=== PATIENT | male | born 1990 | race Caucasian/White ===

== ENCOUNTER 2018-03-04 06:35 | Emergency (ER) | payer OTHER ==
[~2018-03-04] VITALS: Ht 170.2 cm; Wt 86.2 kg
[~2018-03-04 06:35] MED LIST: Amoxicillin500 MG PO; BENADRYL25 MG PO; BENZ100A PO; Biaxin500 MG PO; CEFA250SU PO; CEPH500 PO; CETI10 PO; CYCL10 PO; Cleocin HCl300 MG PO; DIPH50 PO; FAMO20 PO; HYDACE5 PO; IBUP800 PO; KETO10 PO; Keflex500 MG PO; Mobic15 MG PO; NAPR500 PO; NAPR550 PO; Naprosyn500 MG PO; Norco 5-325 Ta1 EACH PO; OMEP20ER PO; OXYACE5T PO; PENVK500 PO; PRED10 PO; PROC10 PO; PROM25 PO; Percocet 5-3251 EACH PO; Prednisone20 MG PO; Prilosec20 MG PO; RXHYDACE PO; RXOXYACE PO; SULTRIDS PO
[2018-03-04 07:21] LABS: BASOPHILS ABSOLUTE AUTO 0.04 K/mm3 (0.00-0.23); BASOPHILS PERCENT AUTO 1 % (0-2); EOSINOPHILS PERCENT AUTO 3 % (0-6); Hematocrit 44.6 % (37.0-53.0); IMMATURE GRAN ABSOLUTE AUTO 0.01 K/mm3 (0.00-0.10); IMMATURE GRAN PERCENT AUTO 0 % (0-1); LYMPHOCYTES ABSOLUTE AUTO 2.67 K/mm3 (0.84-5.20); LYMPHOCYTES PERCENT AUTO 42 % (21-46); MONOCYTES PERCENT AUTO 6 % (4-13); Mean Corpuscular HGB 29.5 pg (26.0-34.0); Mean Corpuscular HGB Conc 33.6 g/dL (31.5-36.5); Mean Corpuscular Volume 88 fL (80-100); Mean Platelet Volume 10.8 fL (9.1-12.4); NEUTROPHILS ABSOLUTE AUTO 2.99 K/mm3 (1.96-9.15); NEUTROPHILS PERCENT AUTO 47 % (41-73); Platelet Count 268 K/mm3 (150-400); RDW Standard Deviation 38.9 fL (35.1-46.3); Red Blood Cell Count 5.08 M/mm3 (4.30-5.90); White Blood Cell Count 6.31 K/mm3 (4.00-11.30)
[2018-03-04 07:35] LABS: Anion Gap 6 mmol/L (6-16); Blood Urea Nitrogen 9 mg/dL (8-24); Bun/Creatinine Ratio 8.7 (12.0-20.0); CO2, Blood 28 mmol/L (21-32); Calcium, Blood 8.2 mg/dL (8.5-10.1); Chloride, Blood 108 mmol/L (98-108); Creatinine, Blood 1.03 mg/dL (0.60-1.20); Glomerular Filtration Rate >60 (60-); Glucose, Blood 101 mg/dL (70-99); Potassium, Blood 3.7 mmol/L (3.5-5.5); Sodium, Blood 142 mmol/L (136-145)
[2018-03-04] MEDS ORDERED: Flomax0.4 MG PO (08:42)
[2018-03-04] MEDS ORDERED: Norco 7.5-3251 EACH PO (08:42)
== END 2018-03-04 09:05 | disposition home or self-care (01) ==
LOC: ER 06:35
PROVIDERS: Emergency Medicine
DX: N13.2 Hydronephrosis with renal and ureteral calculous obstruction (principal); I10 Essential (primary) hypertension; F17.200 Nicotine dependence, unspecified, uncomplicated
CPT/HCPCS: 74176; 80048; 81000; 85025; 96361; 96374; 96375; 99284; J1885; J2405; J7030

== ENCOUNTER 2018-06-15 14:30 | Emergency (ER) | payer SELFPAY ==
[~2018-06-15] VITALS: Ht 170.2 cm; Wt 83.9 kg
[~2018-06-15 14:30] MED LIST changes: +Flomax0.4 MG PO; +Norco 7.5-3251 EACH PO
== END 2018-06-15 15:26 | disposition left against medical advice (07) ==
LOC: ER 14:30
DX: Z53.21 Procedure and treatment not carried out due to patient leaving prior to being seen by health care provider (principal)

== ENCOUNTER 2018-07-09 13:40 | Emergency (ER) | payer MEDICAID ==
[~2018-07-09] VITALS: Ht 167.6 cm; Wt 86.2 kg
== END 2018-07-09 15:53 | disposition home or self-care (01) ==
LOC: ER 13:40
DX: K64.4 Residual hemorrhoidal skin tags (principal); I10 Essential (primary) hypertension; F17.200 Nicotine dependence, unspecified, uncomplicated; Z88.0 Allergy status to penicillin
CPT/HCPCS: 99282

== ENCOUNTER 2019-06-11 22:51 | Emergency (ER) | payer OTHER ==
[~2019-06-11] VITALS: Ht 167.6 cm; Wt 90.7 kg
[2019-06-12 00:52] LABS: BASOPHILS ABSOLUTE AUTO 0.03 K/mm3 (0.00-0.23); BASOPHILS PERCENT AUTO 0 % (0-2); EOSINOPHILS ABSOLUTE AUTO 0.25 K/mm3 (0.00-0.68); EOSINOPHILS PERCENT AUTO 2 % (0-6); Hematocrit 46.9 % (37.0-53.0); Hemoglobin 15.7 g/dL (13.5-17.5); IMMATURE GRAN ABSOLUTE AUTO 0.04 K/mm3 (0.00-0.10); IMMATURE GRAN PERCENT AUTO 0 % (0-1); LYMPHOCYTES ABSOLUTE AUTO 2.27 K/mm3 (0.84-5.20); LYMPHOCYTES PERCENT AUTO 15 % (21-46); MONOCYTES ABSOLUTE AUTO 0.73 K/mm3 (0.16-1.47); MONOCYTES PERCENT AUTO 5 % (4-13); Mean Corpuscular HGB 28.8 pg (26.0-34.0); Mean Corpuscular HGB Conc 33.5 g/dL (31.5-36.5); Mean Corpuscular Volume 86 fL (80-100); Mean Platelet Volume 11.2 fL (9.1-12.4); NEUTROPHILS ABSOLUTE AUTO 11.46 K/mm3 (1.96-9.15); NEUTROPHILS PERCENT AUTO 78 % (41-73); Platelet Count 295 K/mm3 (150-400); RDW Standard Deviation 37.2 fL (35.1-46.3); Red Blood Cell Count 5.45 M/mm3 (4.30-5.90); White Blood Cell Count 14.78 K/mm3 (4.00-11.30)
[2019-06-12 01:10] LABS: Alanine Aminotransfer (ALT/SGP 21 U/L (12-78); Albumin, Blood 3.4 g/dL (3.4-5.0); Alk Phos 96 U/L (50-136); Anion Gap 7 mmol/L (6-16); Aspartate Aminotrans (AST/SGOT 11 U/L (12-37); Bilirubin, Total 0.6 mg/dL (0.1-1.0); Blood Urea Nitrogen 13 mg/dL (8-24); Bun/Creatinine Ratio 16.6 (12.0-20.0); CO2, Blood 29 mmol/L (21-32); Calcium, Blood 8.5 mg/dL (8.5-10.1); Chloride, Blood 103 mmol/L (98-108); Creatinine, Blood 0.79 mg/dL (0.60-1.20); Globulin, Blood 3.4 g/dL (2.2-4.0); Glomerular Filtration Rate >60 (60-); Glucose, Blood 107 mg/dL (70-99); Potassium, Blood 3.6 mmol/L (3.5-5.5); Sodium, Blood 139 mmol/L (136-145); Total Protein, Blood 6.8 g/dL (6.4-8.2)
== END 2019-06-12 02:40 | disposition home or self-care (01) ==
LOC: ER 22:51
PROVIDERS: Emergency Medicine
DX: K21.9 Gastro-esophageal reflux disease without esophagitis (principal); F15.10 Other stimulant abuse, uncomplicated; Z88.0 Allergy status to penicillin; I10 Essential (primary) hypertension; F17.200 Nicotine dependence, unspecified, uncomplicated; Z87.442 Personal history of urinary calculi
CPT/HCPCS: 36415; 80053; 83690; 85025; 99283

== ENCOUNTER 2020-03-22 11:13 | Emergency (ER) | payer OTHER ==
[~2020-03-22] VITALS: Ht 170.2 cm; Wt 83.9 kg
[2020-03-22] MEDS ORDERED: CYCL10 PO (11:56)
[2020-03-22] MEDS ORDERED: IBUP800 PO (11:56)
[2020-03-22] MEDS ORDERED: BACTRIM DS TAB1 EACH PO (11:56)
== END 2020-03-22 12:15 | disposition home or self-care (01) ==
LOC: ER 11:13
DX: M62.830 Muscle spasm of back (principal); L03.113 Cellulitis of right upper limb; I10 Essential (primary) hypertension; F17.200 Nicotine dependence, unspecified, uncomplicated; Z88.0 Allergy status to penicillin
CPT/HCPCS: 20552; 99283-25

== ENCOUNTER 2021-05-24 12:35 | Emergency (ER) | payer OTHER ==
[~2021-05-24] VITALS: Ht 167.6 cm; Wt 86.2 kg
[~2021-05-24 12:35] MED LIST changes: +BACTRIM DS TAB1 EACH PO; +ERYT1OIN RIGHTEYE
== END 2021-05-24 15:06 | disposition home or self-care (01) ==
LOC: ER 12:35
DX: M54.12 Radiculopathy, cervical region (principal); I10 Essential (primary) hypertension; Z88.0 Allergy status to penicillin; Z87.891 Personal history of nicotine dependence
CPT/HCPCS: 73030; 99283-25

== ENCOUNTER 2021-07-12 20:45 | Emergency (ER) | payer OTHER ==
[~2021-07-12] VITALS: Ht 167.6 cm; Wt 93.0 kg
== END 2021-07-12 22:04 | disposition home or self-care (01) ==
LOC: ER 20:45
DX: S60.455A Superficial foreign body of left ring finger, initial encounter (principal); I10 Essential (primary) hypertension; Z88.0 Allergy status to penicillin; Z23 Encounter for immunization; Z87.891 Personal history of nicotine dependence; W45.8XXA Other foreign body or object entering through skin, initial encounter
CPT/HCPCS: 73140; 90471; 90714; 99283-25

== ENCOUNTER 2021-12-11 13:41 | Inpatient (IN) | payer OTHER ==
[~2021-12-11] VITALS: Ht 167.6 cm; Wt 82.3 kg
[2021-12-11 14:17] LABS: BASOPHILS ABSOLUTE AUTO 0.04 K/mm3 (0.00-0.23); BASOPHILS PERCENT AUTO 0 % (0-2); EOSINOPHILS ABSOLUTE AUTO 0.16 K/mm3 (0.00-0.68); EOSINOPHILS PERCENT AUTO 1 % (0-6); Hemoglobin 16.5 g/dL (13.5-17.5); IMMATURE GRAN ABSOLUTE AUTO 0.08 K/mm3 (0.00-0.10); IMMATURE GRAN PERCENT AUTO 1 % (0-1); LYMPHOCYTES ABSOLUTE AUTO 1.54 K/mm3 (0.84-5.20); LYMPHOCYTES PERCENT AUTO 9 % (21-46); MONOCYTES ABSOLUTE AUTO 0.61 K/mm3 (0.16-1.47); MONOCYTES PERCENT AUTO 4 % (4-13); Mean Corpuscular HGB 29.4 pg (26.0-34.0); Mean Corpuscular HGB Conc 33.7 g/dL (31.5-36.5); Mean Corpuscular Volume 87 fL (80-100); Mean Platelet Volume 11.7 fL (9.1-12.4); NEUTROPHILS ABSOLUTE AUTO 14.19 K/mm3 (1.96-9.15); NEUTROPHILS PERCENT AUTO 85 % (41-73); Platelet Count 279 K/mm3 (150-400); RDW Coefficient Variation 12.2 % (11.7-14.2); RDW Standard Deviation 38.6 fL (35.1-46.3); Red Blood Cell Count 5.61 M/mm3 (4.30-5.90); White Blood Cell Count 16.62 K/mm3 (4.00-11.30)
[2021-12-11 14:35] LABS: Alanine Aminotransfer (ALT/SGP 43 U/L (12-78); Albumin, Blood 3.8 g/dL (3.4-5.0); Albumin/Globulin Ratio 1.3 (0.8-1.8); Alk Phos 77 U/L (50-136); Anion Gap 8 mmol/L (6-16); Aspartate Aminotrans (AST/SGOT 24 U/L (12-37); Bilirubin, Total 1.6 mg/dL (0.1-1.0); Blood Urea Nitrogen 17 mg/dL (8-24); Bun/Creatinine Ratio 16.5 (12.0-20.0); CO2, Blood 24 mmol/L (21-32); Chloride, Blood 107 mmol/L (98-108); Creatinine, Blood 1.03 mg/dL (0.60-1.20); Glomerular Filtration Rate >60 (60-); Glucose, Blood 99 mg/dL (70-99); Potassium, Blood 4.2 mmol/L (3.5-5.5); Sodium, Blood 139 mmol/L (136-145); Total Protein, Blood 6.8 g/dL (6.4-8.2)
[2021-12-11 15:07] LABS: Influenza A, PCR NEGATIVE (NEGATIVE); Influenza B, PCR NEGATIVE (NEGATIVE); Resp Syncytial Virus, PCR NEGATIVE (NEGATIVE); SARS-Cov-2 (COVID-19) PCR, MMC NEGATIVE (NEGATIVE)
--- NOTE | 2021-12-11 15:39 | NUR ---
Echocardiogram completed.
--- NOTE | 2021-12-11 18:30 | NUR ---
SHIFT SUMMARY; PATIENT ADMITTED LATE IN AFTERNOON. HE IS AO X 4 ON ARRIVAL. EXPRESSES MUCH ANXIETY THAT HIS HEART IS NOT WORKING CORRECTLY. HIS GIRLFRIEND AT BEDSIDE CONFIRMS THAT PATIENT LAST USED METH THIS AM PRIOR TO COMING TO THE HOSPITAL. DR. RANDOLPH ADMITTED THIS PATIENT TO OBS ON THE MED FLOOR. TELE MONITOR IN PLACE. PATIENT HAS ELEVATED BNP OV >1000 AND RECEIVED LASIX 40MG IV PRIOR TO COMING TO THE MED FLOOR. WILL REMAIN AVAILABLE FOR THIS PATIENT FOR ANY WANTS OR NEEDS PRIOR TO SHIFT CHANGE AND SHIFT REPORT TO NOC SHIFT RN.
[2021-12-11 18:35] LABS: CPK Creatine Kinase 69 U/L (39-308)
[2021-12-12 02:26] LABS: BASOPHILS ABSOLUTE AUTO 0.04 K/mm3 (0.00-0.23); BASOPHILS PERCENT AUTO 0 % (0-2); EOSINOPHILS ABSOLUTE AUTO 0.32 K/mm3 (0.00-0.68); EOSINOPHILS PERCENT AUTO 4 % (0-6); Hematocrit 47.6 % (37.0-53.0); Hemoglobin 16.5 g/dL (13.5-17.5); IMMATURE GRAN ABSOLUTE AUTO 0.02 K/mm3 (0.00-0.10); IMMATURE GRAN PERCENT AUTO 0 % (0-1); LYMPHOCYTES ABSOLUTE AUTO 2.93 K/mm3 (0.84-5.20); LYMPHOCYTES PERCENT AUTO 33 % (21-46); MONOCYTES ABSOLUTE AUTO 0.45 K/mm3 (0.16-1.47); MONOCYTES PERCENT AUTO 5 % (4-13); Mean Corpuscular HGB 29.8 pg (26.0-34.0); Mean Corpuscular HGB Conc 34.7 g/dL (31.5-36.5); Mean Corpuscular Volume 86 fL (80-100); Mean Platelet Volume 11.3 fL (9.1-12.4); NEUTROPHILS ABSOLUTE AUTO 5.23 K/mm3 (1.96-9.15); NEUTROPHILS PERCENT AUTO 58 % (41-73); Platelet Count 256 K/mm3 (150-400); RDW Coefficient Variation 12.2 % (11.7-14.2); RDW Standard Deviation 38.4 fL (35.1-46.3); Red Blood Cell Count 5.54 M/mm3 (4.30-5.90); White Blood Cell Count 8.99 K/mm3 (4.00-11.30)
[2021-12-12 02:44] LABS: Alanine Aminotransfer (ALT/SGP 37 U/L (12-78); Albumin, Blood 3.6 g/dL (3.4-5.0); Albumin/Globulin Ratio 1.2 (0.8-1.8); Alk Phos 80 U/L (50-136); Anion Gap 7 mmol/L (6-16); Aspartate Aminotrans (AST/SGOT 17 U/L (12-37); Bilirubin, Total 1.3 mg/dL (0.1-1.0); Blood Urea Nitrogen 16 mg/dL (8-24); Bun/Creatinine Ratio 12.9 (12.0-20.0); CO2, Blood 28 mmol/L (21-32); Calcium, Blood 8.6 mg/dL (8.5-10.1); Chloride, Blood 105 mmol/L (98-108); Creatinine, Blood 1.24 mg/dL (0.60-1.20); Globulin, Blood 3.1 g/dL (2.2-4.0); Glomerular Filtration Rate >60 (60-); Glucose, Blood 110 mg/dL (70-99); Potassium, Blood 3.8 mmol/L (3.5-5.5); Sodium, Blood 140 mmol/L (136-145); Total Protein, Blood 6.7 g/dL (6.4-8.2)
[2021-12-12 02:46] LABS: CPK Creatine Kinase 61 U/L (39-308)
--- NOTE | 2021-12-12 07:38 | NUR ---
PATIENT ASLEEP ALL NIGHT. NO COMPLAINTS OF PAIN. PATIENTS BROTHER CALLED TO VERIFY IF HE COULD BE INVOLVED IN PATIENTS CARE. SPOKE WITH PATIENT WHO CONFIRMED THAT HIS BROTHER GENEVA YOUSIF SHOULD BE INVOLVED WITH HIS CARE. PATIENTS GIRLFRIEND CALLED THIS MORNING REGARDING PLAN. ADVISED THAT PATIENT WILL NOTIFY HER WHEN UP. WILL RELAY TO ONCOMING NURSE UPON ARRIVAL.
[2021-12-12 09:01] LABS: U Amphetamine Screen DETECTED; U Barbituate Screen Not Detected; U Benzodiazapine Screen Not Detected; U Buprenorphine Screen Not Detected; U Cannabinoids Screen DETECTED; U Cocaine Screen Not Detected; U Methadone Screen Not Detected; U Methamphetamine Screen DETECTED; U Opiates Screen Not Detected; U Oxycodone Screen Not Detected; U Phencyclidine Screen Not Detected; U Propoxyphene Screen Not Detected
--- NOTE | 2021-12-12 15:22 | NUR ---
THIS MORNING PATIENT COMPLAINED OF CHEST PAIN, MD ORDERED EKG, TROP 1, NITRO, ASPIRIN. INTERVENTIONS EFFECTIVE. PT ANXIOUS TO GO HOME ASKING ABOUT MEDS AND TO BE DISCHARGED. ECHO RESULTS SHOW EF 10-15%, MD WILL NOT DC PATIENT HOME TODAY. EDUCATION PROVIDED TO PT R/T CHF AND LAB RESULTS. PT EMOTIONAL D/T POOR HEART FUNCTION, AGREED TO STAY FOR TX. CARDIOLGOY CONSULT ORDERED.
--- NOTE | 2021-12-12 18:21 | NUR ---
END OF SHIFT SUMMARY: DESULFURIZER OPERATOR CONSULTED W/ PT/FAMILY TODAY. MD ORDERED NPO AT MIDNIGHT, PT WILL GO TO TIRE RECAPPING MACHINE OPERATOR TOMORROW MORNING. PT FEELING ANXIOUS ABOUT PROCEDURE. DENIED PAIN/DISCOMFORT, VITALS ARE STABLE. WILL CONTINUE PLAN OF CARE.
[2021-12-13 05:07] LABS: BASOPHILS ABSOLUTE AUTO 0.05 K/mm3 (0.00-0.23); BASOPHILS PERCENT AUTO 1 % (0-2); EOSINOPHILS ABSOLUTE AUTO 0.34 K/mm3 (0.00-0.68); EOSINOPHILS PERCENT AUTO 4 % (0-6); Hematocrit 48.2 % (37.0-53.0); IMMATURE GRAN ABSOLUTE AUTO 0.02 K/mm3 (0.00-0.10); IMMATURE GRAN PERCENT AUTO 0 % (0-1); LYMPHOCYTES ABSOLUTE AUTO 3.03 K/mm3 (0.84-5.20); LYMPHOCYTES PERCENT AUTO 32 % (21-46); MONOCYTES ABSOLUTE AUTO 0.51 K/mm3 (0.16-1.47); MONOCYTES PERCENT AUTO 6 % (4-13); Mean Corpuscular HGB 29.4 pg (26.0-34.0); Mean Corpuscular HGB Conc 33.2 g/dL (31.5-36.5); Mean Corpuscular Volume 88 fL (80-100); Mean Platelet Volume 11.7 fL (9.1-12.4); NEUTROPHILS PERCENT AUTO 58 % (41-73); Platelet Count 255 K/mm3 (150-400); RDW Coefficient Variation 12.4 % (11.7-14.2); RDW Standard Deviation 40.3 fL (35.1-46.3); Red Blood Cell Count 5.45 M/mm3 (4.30-5.90); White Blood Cell Count 9.35 K/mm3 (4.00-11.30)
[2021-12-13 05:27] LABS: Anion Gap 4 mmol/L (6-16); Blood Urea Nitrogen 21 mg/dL (8-24); Bun/Creatinine Ratio 16.2 (12.0-20.0); CHOL/HDL RATIO 3.1; CO2, Blood 29 mmol/L (21-32); Calcium, Blood 9.1 mg/dL (8.5-10.1); Chloride, Blood 105 mmol/L (98-108); Cholesterol 144 mg/dL (50-200); Glomerular Filtration Rate >60 (60-); Glucose, Blood 106 mg/dL (70-99); HDL Cholesterol 46 mg/dL (>39); LDL/HDL RATIO 1.8; Low Density Lipoprotein Chol 82 mg/dL (0-110); Magnesium, Blood 2.1 mg/dL (1.6-2.4); Potassium, Blood 4.2 mmol/L (3.5-5.5); Sodium, Blood 138 mmol/L (136-145); Triglycerides 82 mg/dL (30-140); Very Low Density Lipoprot Chol 16 mg/dL (6-28)
--- NOTE | 2021-12-13 05:48 | NUR ---
PM SHIFT SUMMARY: PATIENT IS HERE FOR NEW ONSET CHF. C/O SOB AND CHEST TIGHTNESS ON ADMISSION. CXR SHOWED PULM EDEMA AND CARDIOMEGALY. HISTORY OF METH USE. ECHO SHOWED HIS EF TO BE 10%. HE IS A&Ox4 AND AMBULATORY. HE IS GOING TO THE [facility] TODAY FOR ANGIOGRAM. NO OTHER COMPLAINTS AT THIS TIME.
--- NOTE | 2021-12-13 08:46 | NUR ---
PATIENT AOX4, VITALS STABLE, DENIES PAIN, REPORTS ANXIETY R/T PROCEDURE THIS AM. ACCOUNT ANALYST AT BEDSIDE UPDATING PT/FAMILY ON PLAN OF CARE. AM COREG GIVEN. PATIENT LEFT UNIT AT 0850 FOR BOX LIDDER.
--- NOTE | 2021-12-13 13:47 | NUR ---
Pt to PCU 16 from the [facility], arrived in wheelchair with 2 staff. Pt transfers with ease, denies any pain/dyspnea. No apparent anxiety, discomfort or shortness of breath. Right radial site visualized: no bleeding, no bruising, no hematoma, no swelling. TR band is in place. Pt states no pain in the arm or hand. STates some numbness of 3 digits. Hand is pink, cap refill is good and pulse is palpable ditally. Instructed pt not to bend wrist, nor to use the hand/arm at this time. White immoblizer board in place. Visitors at the bedside.
--- NOTE | 2021-12-13 14:50 | NUR ---
END OF SHIFT SUMMARY: PT RETURNED FROM LADLE REPAIRMAN, RESTING COMFORTABLY IN BED, LEFT UNIT AND TRANSFERRED TO PCU 1350. HANDOFF REPORT GIVE TO PCU, RN.
--- NOTE | 2021-12-13 18:29 | NUR ---
SHIFT SUMMARY PT A&O X4. VSS. SPO2 > 92% ON RA. MONITOR SHOWING SR-ST, HR 90's-110. R RADIAL ACCESS SITE TR BAND DEFLATION & REMOVAL WNL THIS SHIFT W/ NO BLEEDING & NO HEMATOMA. TRANSPARENT DRESSING APPLIED TO SITE. ARM BOARD IN PLACE. CALL TO ISTRATE W/ NEW ORDER FOR NICOTINE PATCH PER PT REQUEST. NO FURTHER EVENTS.
[2021-12-14 03:56] LABS: BASOPHILS ABSOLUTE AUTO 0.04 K/mm3 (0.00-0.23); BASOPHILS PERCENT AUTO 1 % (0-2); EOSINOPHILS ABSOLUTE AUTO 0.18 K/mm3 (0.00-0.68); EOSINOPHILS PERCENT AUTO 3 % (0-6); Hematocrit 47.4 % (37.0-53.0); Hemoglobin 15.6 g/dL (13.5-17.5); IMMATURE GRAN ABSOLUTE AUTO 0.02 K/mm3 (0.00-0.10); IMMATURE GRAN PERCENT AUTO 0 % (0-1); LYMPHOCYTES ABSOLUTE AUTO 2.53 K/mm3 (0.84-5.20); LYMPHOCYTES PERCENT AUTO 35 % (21-46); MONOCYTES ABSOLUTE AUTO 0.48 K/mm3 (0.16-1.47); MONOCYTES PERCENT AUTO 7 % (4-13); Mean Corpuscular HGB 28.9 pg (26.0-34.0); Mean Corpuscular HGB Conc 32.9 g/dL (31.5-36.5); Mean Corpuscular Volume 88 fL (80-100); Mean Platelet Volume 11.6 fL (9.1-12.4); NEUTROPHILS ABSOLUTE AUTO 3.92 K/mm3 (1.96-9.15); NEUTROPHILS PERCENT AUTO 55 % (41-73); Platelet Count 231 K/mm3 (150-400); RDW Coefficient Variation 12.3 % (11.7-14.2); RDW Standard Deviation 39.8 fL (35.1-46.3); Red Blood Cell Count 5.39 M/mm3 (4.30-5.90); White Blood Cell Count 7.17 K/mm3 (4.00-11.30)
[2021-12-14 04:13] LABS: Anion Gap 6 mmol/L (6-16); Blood Urea Nitrogen 23 mg/dL (8-24); Bun/Creatinine Ratio 20.9 (12.0-20.0); CO2, Blood 24 mmol/L (21-32); Calcium, Blood 8.7 mg/dL (8.5-10.1); Chloride, Blood 107 mmol/L (98-108); Glomerular Filtration Rate >60 (60-); Glucose, Blood 102 mg/dL (70-99); Potassium, Blood 4.2 mmol/L (3.5-5.5); Sodium, Blood 137 mmol/L (136-145)
--- NOTE | 2021-12-14 06:40 | NUR ---
PATIENT REMAINS ALERT AND FOLLOW COMMANDS.V/S STABLE. AFEBRILE. NO COMPLAINTS OF PAIN.PATIENT VOID TIME ONE. PENDING D/C HOME WITH LIFE VEST. FREQUENT ROUNDS TO ENSURE SAFETY. PATIENT IN NO APPREANT DISTRESS.WILL CONTINUE TO MONITOR PATIENT CONDITION.
[2021-12-14] MEDS ORDERED: Acetaminophen650 M1 PO (10:17)
[2021-12-14] MEDS ORDERED: CARV3.125 PO (10:18)
[2021-12-14] MEDS ORDERED: Nicoderm Cq1 EACH TOP (10:20)
[2021-12-14] MEDS ORDERED: NITR.4SL SL (10:22)
[2021-12-14] MEDS ORDERED: ONDA4ODT MM (10:23)
[2021-12-14] MEDS ORDERED: PRAVASTATIN SOD10 MG PO (10:24)
[2021-12-14] MEDS ORDERED: SPIR25 PO (10:24)
--- NOTE | 2021-12-14 17:51 | NUR ---
DISCHARGE PT A&O X4. VSS. SPO2 > 92% ON RA. TELEMETRY SHOWING SR. PT SET UP W/ LIFE VEST TODAY. DISCHARGE INSTRUCTIONS REVIEWED W/ PT. PIV REMOVED. PT S/O PRESENT FOR LIFE VEST/DISCHARGE INSTRUCTIONS. PT DISCHARGED HOME @ APPROX 1745, TAKEN OUT IN WHEEL CHAIR BY YARED W/ BELONGINGS.
== END 2021-12-14 17:45 | disposition home or self-care (01) | DRG 286 ==
LOC: ER 13:41 → MEDS 13:42 → PCU 12-13 13:44
PROVIDERS: Emergency Medicine; Family Medicine; Internal Medicine Cardiovascular Disease; ADMIT Internal Medicine
PROC: 4A023N7 Measurement of Cardiac Sampling and Pressure, Left Heart, Percutaneous Approach (ICD-10-PCS; principal; 2021-12-13)
DX: I11.0 Hypertensive heart disease with heart failure (principal); I50.21 Acute systolic (congestive) heart failure; I42.7 Cardiomyopathy due to drug and external agent; I25.5 Ischemic cardiomyopathy; Z20.822 Contact with and (suspected) exposure to COVID-19; Z88.0 Allergy status to penicillin; I25.10 Atherosclerotic heart disease of native coronary artery without angina pectoris; R06.01 Orthopnea; I27.20 Pulmonary hypertension, unspecified; R94.31 Abnormal electrocardiogram [ECG] [EKG]; Z72.0 Tobacco use
CPT/HCPCS: 0241U; 36415; 71045; 76937; 80048; 80053; 80061; 82550; 83735; 83880; 84145; 84443; 84484; 85025; 85379; 90686; 93005; 93010; 93458; 96372; 96374; 96376; 99152; 99285-25; A9270; C1769; C1887; C1894; C8929; G0008; G0378; J1644; J1650; J1940; J2250; J3010; J7030; J7040; J7050; Q9957; Q9967

== ENCOUNTER 2021-12-23 07:26 | Emergency (ER) | payer OTHER ==
[~2021-12-23] VITALS: Ht 170.2 cm; Wt 83.9 kg
[~2021-12-23 07:26] MED LIST changes: +Acetaminophen650 M1 PO; +CARV3.125 PO; +NITR.4SL SL; +Nicoderm Cq1 EACH TOP; +ONDA4ODT MM; +PRAVASTATIN SOD10 MG PO; +SPIR25 PO
[2021-12-23 08:19] LABS: BASOPHILS ABSOLUTE AUTO 0.03 K/mm3 (0.00-0.23); BASOPHILS PERCENT AUTO 0 % (0-2); EOSINOPHILS ABSOLUTE AUTO 0.09 K/mm3 (0.00-0.68); EOSINOPHILS PERCENT AUTO 1 % (0-6); Hematocrit 44.7 % (37.0-53.0); Hemoglobin 15.1 g/dL (13.5-17.5); IMMATURE GRAN ABSOLUTE AUTO 0.06 K/mm3 (0.00-0.10); IMMATURE GRAN PERCENT AUTO 0 % (0-1); LYMPHOCYTES ABSOLUTE AUTO 1.61 K/mm3 (0.84-5.20); LYMPHOCYTES PERCENT AUTO 11 % (21-46); MONOCYTES ABSOLUTE AUTO 0.39 K/mm3 (0.16-1.47); MONOCYTES PERCENT AUTO 3 % (4-13); Mean Corpuscular HGB 29.8 pg (26.0-34.0); Mean Corpuscular HGB Conc 33.8 g/dL (31.5-36.5); Mean Corpuscular Volume 88 fL (80-100); Mean Platelet Volume 11.9 fL (9.1-12.4); NEUTROPHILS PERCENT AUTO 85 % (41-73); Platelet Count 267 K/mm3 (150-400); RDW Coefficient Variation 12.2 % (11.7-14.2); RDW Standard Deviation 39.9 fL (35.1-46.3); Red Blood Cell Count 5.06 M/mm3 (4.30-5.90); White Blood Cell Count 14.58 K/mm3 (4.00-11.30)
[2021-12-23 08:37] LABS: Alanine Aminotransfer (ALT/SGP 48 U/L (12-78); Albumin, Blood 3.7 g/dL (3.4-5.0); Albumin/Globulin Ratio 1.1 (0.8-1.8); Alk Phos 80 U/L (50-136); Anion Gap 6 mmol/L (6-16); Aspartate Aminotrans (AST/SGOT 22 U/L (12-37); Bilirubin, Total 0.8 mg/dL (0.1-1.0); Blood Urea Nitrogen 18 mg/dL (8-24); Bun/Creatinine Ratio 16.2 (12.0-20.0); CO2, Blood 26 mmol/L (21-32); Calcium, Blood 8.8 mg/dL (8.5-10.1); Chloride, Blood 106 mmol/L (98-108); Creatinine, Blood 1.11 mg/dL (0.60-1.20); Globulin, Blood 3.3 g/dL (2.2-4.0); Glomerular Filtration Rate >60 (60-); Glucose, Blood 107 mg/dL (70-99); Potassium, Blood 3.9 mmol/L (3.5-5.5); Sodium, Blood 138 mmol/L (136-145)
[2021-12-23] MEDS ORDERED: FAMO20 PO (09:01)
[2021-12-23] MEDS ORDERED: ONDA4ODT MM (09:01)
== END 2021-12-23 09:31 | disposition home or self-care (01) ==
LOC: ER 07:26
PROVIDERS: Emergency Medicine
DX: F19.10 Other psychoactive substance abuse, uncomplicated (principal); R11.2 Nausea with vomiting, unspecified; I11.0 Hypertensive heart disease with heart failure; I50.9 Heart failure, unspecified; F17.210 Nicotine dependence, cigarettes, uncomplicated; Z88.0 Allergy status to penicillin; Z79.899 Other long term (current) drug therapy
CPT/HCPCS: 80053; 83690; 85025; 96374; 96375; 99284; C9113; J2405; J7030

== ENCOUNTER 2022-01-03 22:25 | Observation (INO) | payer OTHER ==
[~2022-01-03] VITALS: Ht 170.2 cm; Wt 83.9 kg
[~2022-01-03 22:25] MED LIST changes: +AZIT250 PO; +CEFP200 PO; +PROBIOTIC1 EA13 PO
[2022-01-03 23:00] LABS: BASOPHILS ABSOLUTE AUTO 0.06 K/mm3 (0.00-0.23); BASOPHILS PERCENT AUTO 1 % (0-2); EOSINOPHILS PERCENT AUTO 2 % (0-6); Hematocrit 43.5 % (37.0-53.0); IMMATURE GRAN ABSOLUTE AUTO 0.02 K/mm3 (0.00-0.10); IMMATURE GRAN PERCENT AUTO 0 % (0-1); LYMPHOCYTES PERCENT AUTO 35 % (21-46); MONOCYTES ABSOLUTE AUTO 0.38 K/mm3 (0.16-1.47); MONOCYTES PERCENT AUTO 4 % (4-13); Mean Corpuscular HGB 30.1 pg (26.0-34.0); Mean Corpuscular HGB Conc 34.5 g/dL (31.5-36.5); Mean Corpuscular Volume 87 fL (80-100); Mean Platelet Volume 11.7 fL (9.1-12.4); NEUTROPHILS ABSOLUTE AUTO 4.88 K/mm3 (1.96-9.15); NEUTROPHILS PERCENT AUTO 57 % (41-73); Platelet Count 288 K/mm3 (150-400); RDW Coefficient Variation 12.3 % (11.7-14.2); RDW Standard Deviation 39.1 fL (35.1-46.3); Red Blood Cell Count 4.99 M/mm3 (4.30-5.90); White Blood Cell Count 8.54 K/mm3 (4.00-11.30)
[2022-01-03 23:18] LABS: Alanine Aminotransfer (ALT/SGP 67 U/L (12-78); Albumin, Blood 3.6 g/dL (3.4-5.0); Albumin/Globulin Ratio 1.2 (0.8-1.8); Alk Phos 76 U/L (50-136); Anion Gap 6 mmol/L (6-16); Aspartate Aminotrans (AST/SGOT 29 U/L (12-37); Bilirubin, Total 0.2 mg/dL (0.1-1.0); Blood Urea Nitrogen 21 mg/dL (8-24); Bun/Creatinine Ratio 17.6 (12.0-20.0); CO2, Blood 29 mmol/L (21-32); Chloride, Blood 105 mmol/L (98-108); Creatinine, Blood 1.19 mg/dL (0.60-1.20); Globulin, Blood 3.1 g/dL (2.2-4.0); Glomerular Filtration Rate >60 (60-); Glucose, Blood 145 mg/dL (70-99); Sodium, Blood 140 mmol/L (136-145); Total Protein, Blood 6.7 g/dL (6.4-8.2)
[2022-01-04 00:10] LABS: U Amphetamine Screen DETECTED; U Barbituate Screen Not Detected; U Benzodiazapine Screen Not Detected; U Buprenorphine Screen Not Detected; U Cannabinoids Screen DETECTED; U Cocaine Screen Not Detected; U Methadone Screen Not Detected; U Methamphetamine Screen DETECTED; U Opiates Screen Not Detected; U Oxycodone Screen Not Detected; U Phencyclidine Screen Not Detected; U Propoxyphene Screen Not Detected
[2022-01-04 00:15] LABS: Influenza A, PCR NEGATIVE (NEGATIVE); Influenza B, PCR NEGATIVE (NEGATIVE); Resp Syncytial Virus, PCR NEGATIVE (NEGATIVE); SARS-Cov-2 (COVID-19) PCR, MMC NEGATIVE (NEGATIVE)
--- NOTE | 2022-01-04 05:27 | NUR ---
ABOUT 0100 PATIENT ARRIVED TO UNIT. ALERT AND ORIENTED X'S 4. DENIES SOB OR CHEST PAIN, ON RA, RESPIRATIONS EVEN AND UNLABORED. EXTERNAL DIFIBRILLATOR IN PLACE. TELEMETRY: S/R 80'S. SLEPT WELL THROUGH NIGHT. RESTING PEACEFULLY IN BED, SAFETY MAINTAINED.
[2022-01-04 07:35] LABS: BASOPHILS ABSOLUTE AUTO 0.06 K/mm3 (0.00-0.23); BASOPHILS PERCENT AUTO 1 % (0-2); EOSINOPHILS ABSOLUTE AUTO 0.16 K/mm3 (0.00-0.68); EOSINOPHILS PERCENT AUTO 2 % (0-6); Hemoglobin 14.7 g/dL (13.5-17.5); IMMATURE GRAN ABSOLUTE AUTO 0.03 K/mm3 (0.00-0.10); IMMATURE GRAN PERCENT AUTO 0 % (0-1); LYMPHOCYTES ABSOLUTE AUTO 3.05 K/mm3 (0.84-5.20); LYMPHOCYTES PERCENT AUTO 36 % (21-46); MONOCYTES ABSOLUTE AUTO 0.45 K/mm3 (0.16-1.47); MONOCYTES PERCENT AUTO 5 % (4-13); Mean Corpuscular HGB 29.6 pg (26.0-34.0); Mean Corpuscular HGB Conc 34.2 g/dL (31.5-36.5); Mean Corpuscular Volume 87 fL (80-100); Mean Platelet Volume 11.9 fL (9.1-12.4); NEUTROPHILS PERCENT AUTO 56 % (41-73); Platelet Count 275 K/mm3 (150-400); RDW Coefficient Variation 12.3 % (11.7-14.2); Red Blood Cell Count 4.97 M/mm3 (4.30-5.90); White Blood Cell Count 8.45 K/mm3 (4.00-11.30)
[2022-01-04 07:47] LABS: Alanine Aminotransfer (ALT/SGP 66 U/L (12-78); Albumin, Blood 3.4 g/dL (3.4-5.0); Albumin/Globulin Ratio 1.2 (0.8-1.8); Alk Phos 70 U/L (50-136); Anion Gap 7 mmol/L (6-16); Aspartate Aminotrans (AST/SGOT 23 U/L (12-37); Bilirubin, Total 0.3 mg/dL (0.1-1.0); Blood Urea Nitrogen 18 mg/dL (8-24); Bun/Creatinine Ratio 16.7 (12.0-20.0); CO2, Blood 26 mmol/L (21-32); Calcium, Blood 8.7 mg/dL (8.5-10.1); Chloride, Blood 106 mmol/L (98-108); Creatinine, Blood 1.08 mg/dL (0.60-1.20); Globulin, Blood 2.9 g/dL (2.2-4.0); Glomerular Filtration Rate >60 (60-); Glucose, Blood 100 mg/dL (70-99); Potassium, Blood 3.9 mmol/L (3.5-5.5); Sodium, Blood 139 mmol/L (136-145); Total Protein, Blood 6.3 g/dL (6.4-8.2)
[2022-01-04 07:53] LABS: CPK Creatine Kinase 42 U/L (39-308)
--- NOTE | 2022-01-04 08:00 | NUR ---
PT PLEASANT, WITHDRAWN, QUIET. VERBALIZED UNDERSTANDING OF EF 10%. STATES NOT USING METH NOW. A/O X3, H/R REG, NO MURMER NOTED. PER TELE S TACH AT 101, OCC PVC'S. HAS ZOLE LIFE VEST. STATES NO ACTIVITY SINCE HAD FOR 2 1/2 WEEKS. LUNGS CLEAR RESP EASY, UNLABORED. ON R.A. BT X4 PT STATES LAST BM YEST. VOIDS SBA TO BATHROOM. BED IN LOW POSITION, CALL LITE IN REACH, CALLS APPROP-
--- NOTE | 2022-01-04 09:50 | NUR ---
DR RUIZ REQUEST INTERROGATE [facility] PRIOR TO D/C IF POSSIBLE
--- NOTE | 2022-01-04 11:10 | NUR ---
PT STATES HAS HAD LIFE VEST FOR 2 1/2 WEEKS. STATES DOES NOT THINK HAS SHOCKED HIM. STATES HE'S NOT SURE WHY HAS IT, STATES IT SUPPOSED TO KEEP HIS HEART FRON STOPPING. STATES WAS ORDERED FROM HIS DOG OR ANIMAL SITTER AND THATS ALL HE KNOWS ABOUT IT.
--- NOTE | 2022-01-04 11:41 | NUR ---
LIFE VEST PER [facility] AT [facility] LAST NIGHT THE LIFE VEST HAD NOT PROVIDED A SHOCK. CALLED DR RUIZ TO RELAY THIS INFO AND HE STATED PT IS OKAY TO DISCHARGE
[2022-01-04] MEDS ORDERED: ENTRESTO 24 MG1 EACH PO (13:00)
--- NOTE | 2022-01-04 13:34 | NUR ---
DISCHARGE REVIEWED WITH PT. HE VERBALIZED UNDERSTANDING MEDS AND INST. IV PULLED INTACT. TELE REMOVED AND RETURNED. PT WHEELED TO DOOR BY SALES EXPERT [employer] THEATER [id number]
--- NOTE | 2022-01-04 16:56 | NUR ---
[facility] CALLED WITH QUESTIONS ABOUT ENTRESTO STATED REQUIRED PRIOR AUTH FOR INSURANCE APPROVAL. PHARMACIST STATED THEY WOULD FAX FORM OVER FOR DR. DR RUIZ AGREEABLE TO FILL IT OUT. TOOK MULTIPLE CALLS TO THE PHARMACY BEFORE FORM WAS RECIEVED. FORM GIVEN TO DR RUIZ TO COMPLETE AND RETURN
[2022-04-09] MEDS ORDERED: FURO40 PO (12:24)
== END 2022-01-04 13:37 | disposition home or self-care (01) ==
LOC: ER 22:25 → MEDS 22:26 → ER 23:51 → MEDS 01-04 00:37
PROVIDERS: Emergency Medicine; ADMIT Internal Medicine
DX: R55 Syncope and collapse (principal); I42.7 Cardiomyopathy due to drug and external agent; T43.625A Adverse effect of amphetamines, initial encounter; I11.0 Hypertensive heart disease with heart failure; I50.9 Heart failure, unspecified; F17.210 Nicotine dependence, cigarettes, uncomplicated; F15.11 Other stimulant abuse, in remission; Z20.822 Contact with and (suspected) exposure to COVID-19
CPT/HCPCS: 0241U; 36415; 71045; 80053; 82550; 83605; 83880; 84484; 85025; 93005; 93010; 96372; 99285-25; A9270; G0378; J1650

== ENCOUNTER 2022-01-07 11:10 | Emergency (ER) | payer OTHER ==
[~2022-01-07] VITALS: Ht 170.2 cm; Wt 80.7 kg
[~2022-01-07 11:10] MED LIST changes: +ENTRESTO 24 MG1 EACH PO
[2022-01-07 12:03] LABS: BASOPHILS ABSOLUTE AUTO 0.08 K/mm3 (0.00-0.23); BASOPHILS PERCENT AUTO 1 % (0-2); EOSINOPHILS ABSOLUTE AUTO 0.23 K/mm3 (0.00-0.68); EOSINOPHILS PERCENT AUTO 2 % (0-6); Hematocrit 47.8 % (37.0-53.0); IMMATURE GRAN ABSOLUTE AUTO 0.06 K/mm3 (0.00-0.10); IMMATURE GRAN PERCENT AUTO 1 % (0-1); LYMPHOCYTES ABSOLUTE AUTO 2.31 K/mm3 (0.84-5.20); LYMPHOCYTES PERCENT AUTO 19 % (21-46); MONOCYTES ABSOLUTE AUTO 0.57 K/mm3 (0.16-1.47); MONOCYTES PERCENT AUTO 5 % (4-13); Mean Corpuscular HGB 29.4 pg (26.0-34.0); Mean Corpuscular HGB Conc 33.5 g/dL (31.5-36.5); Mean Corpuscular Volume 88 fL (80-100); NEUTROPHILS ABSOLUTE AUTO 8.95 K/mm3 (1.96-9.15); NEUTROPHILS PERCENT AUTO 73 % (41-73); Platelet Count 272 K/mm3 (150-400); RDW Coefficient Variation 12.5 % (11.7-14.2); RDW Standard Deviation 40.3 fL (35.1-46.3); Red Blood Cell Count 5.44 M/mm3 (4.30-5.90)
[2022-01-07 12:23] LABS: Alanine Aminotransfer (ALT/SGP 59 U/L (12-78); Albumin, Blood 3.7 g/dL (3.4-5.0); Albumin/Globulin Ratio 1.2 (0.8-1.8); Alk Phos 70 U/L (50-136); Anion Gap 8 mmol/L (6-16); Aspartate Aminotrans (AST/SGOT 24 U/L (12-37); Bilirubin, Total 0.8 mg/dL (0.1-1.0); Blood Urea Nitrogen 17 mg/dL (8-24); Bun/Creatinine Ratio 19.3 (12.0-20.0); CO2, Blood 23 mmol/L (21-32); Calcium, Blood 8.8 mg/dL (8.5-10.1); Chloride, Blood 106 mmol/L (98-108); Creatinine, Blood 0.88 mg/dL (0.60-1.20); Glomerular Filtration Rate >60 (60-); Glucose, Blood 97 mg/dL (70-99); Potassium, Blood 4.9 mmol/L (3.5-5.5); Sodium, Blood 137 mmol/L (136-145); Total Protein, Blood 6.7 g/dL (6.4-8.2)
[2022-01-07] MEDS ORDERED: OMEP20ER PO (13:14)
== END 2022-01-07 14:00 | disposition home or self-care (01) ==
LOC: ER 11:10
PROVIDERS: Physician Assistant
DX: R07.9 Chest pain, unspecified (principal); R10.9 Unspecified abdominal pain; Z88.0 Allergy status to penicillin; Z79.899 Other long term (current) drug therapy; I11.0 Hypertensive heart disease with heart failure; I50.22 Chronic systolic (congestive) heart failure; F17.210 Nicotine dependence, cigarettes, uncomplicated
CPT/HCPCS: 36415; 71045; 80053; 83690; 83880; 84484; 85025; 93005; 93010; 96374; 96375; 99285-25; J2405; J3010

== ENCOUNTER 2022-04-13 05:57 | Emergency (ER) | payer OTHER ==
[~2022-04-13] VITALS: Ht 167.6 cm; Wt 79.8 kg
[~2022-04-13 05:57] MED LIST changes: +FURO40 PO
[2022-04-13] MEDS ORDERED: ENTRESTO 24 MG1 EACH PO (06:25)
[2022-04-13 06:34] LABS: BASOPHILS ABSOLUTE AUTO 0.03 K/mm3 (0.00-0.23); BASOPHILS PERCENT AUTO 1 % (0-2); EOSINOPHILS ABSOLUTE AUTO 0.05 K/mm3 (0.00-0.68); EOSINOPHILS PERCENT AUTO 1 % (0-6); Hemoglobin 15.4 g/dL (13.5-17.5); IMMATURE GRAN ABSOLUTE AUTO 0.01 K/mm3 (0.00-0.10); IMMATURE GRAN PERCENT AUTO 0 % (0-1); LYMPHOCYTES ABSOLUTE AUTO 0.32 K/mm3 (0.84-5.20); LYMPHOCYTES PERCENT AUTO 6 % (21-46); MONOCYTES ABSOLUTE AUTO 0.45 K/mm3 (0.16-1.47); MONOCYTES PERCENT AUTO 9 % (4-13); Mean Corpuscular HGB 29.9 pg (26.0-34.0); Mean Corpuscular HGB Conc 34.2 g/dL (31.5-36.5); Mean Corpuscular Volume 87 fL (80-100); Mean Platelet Volume 12.1 fL (9.1-12.4); NEUTROPHILS ABSOLUTE AUTO 4.29 K/mm3 (1.96-9.15); NEUTROPHILS PERCENT AUTO 83 % (41-73); Platelet Count 186 K/mm3 (150-400); RDW Coefficient Variation 12.2 % (11.7-14.2); RDW Standard Deviation 39.3 fL (35.1-46.3); Red Blood Cell Count 5.15 M/mm3 (4.30-5.90); White Blood Cell Count 5.15 K/mm3 (4.00-11.30)
[2022-04-13 06:56] LABS: Albumin, Blood 3.6 g/dL (3.4-5.0); Albumin/Globulin Ratio 1.2 (0.8-1.8); Bilirubin, Total 0.4 mg/dL (0.1-1.0); Bun/Creatinine Ratio 11.1 (12.0-20.0); Calcium, Blood 8.7 mg/dL (8.5-10.1); Creatinine, Blood 1.26 mg/dL (0.60-1.20); Potassium, Blood 3.5 mmol/L (3.5-5.5); Total Protein, Blood 6.6 g/dL (6.4-8.2)
== END 2022-04-13 10:30 | disposition home or self-care (01) ==
LOC: ER 05:57
PROVIDERS: Student in an Organized Health Care Education/Training Program
DX: F15.10 Other stimulant abuse, uncomplicated (principal); R07.9 Chest pain, unspecified; G89.29 Other chronic pain; I11.0 Hypertensive heart disease with heart failure; I50.22 Chronic systolic (congestive) heart failure; F17.210 Nicotine dependence, cigarettes, uncomplicated; Z79.899 Other long term (current) drug therapy; Z88.0 Allergy status to penicillin; Z60.9 Problem related to social environment, unspecified
CPT/HCPCS: 36415; 71045; 80053; 83880; 84484; 85025; 93005; 93010; A9270; J2060; J7030

== ENCOUNTER 2022-04-14 22:50 | Emergency (ER) | payer OTHER ==
[~2022-04-14] VITALS: Ht 167.6 cm; Wt 80.7 kg
[2022-04-15 01:29] LABS: BASOPHILS ABSOLUTE AUTO 0.03 K/mm3 (0.00-0.23); BASOPHILS PERCENT AUTO 1 % (0-2); EOSINOPHILS PERCENT AUTO 0 % (0-6); Hematocrit 50.3 % (37.0-53.0); Hemoglobin 17.3 g/dL (13.5-17.5); IMMATURE GRAN ABSOLUTE AUTO 0.01 K/mm3 (0.00-0.10); IMMATURE GRAN PERCENT AUTO 0 % (0-1); LYMPHOCYTES ABSOLUTE AUTO 1.87 K/mm3 (0.84-5.20); LYMPHOCYTES PERCENT AUTO 61 % (21-46); MONOCYTES ABSOLUTE AUTO 0.38 K/mm3 (0.16-1.47); MONOCYTES PERCENT AUTO 12 % (4-13); Mean Corpuscular HGB 29.5 pg (26.0-34.0); Mean Corpuscular HGB Conc 34.4 g/dL (31.5-36.5); Mean Corpuscular Volume 86 fL (80-100); NEUTROPHILS ABSOLUTE AUTO 0.78 K/mm3 (1.96-9.15); NEUTROPHILS PERCENT AUTO 25 % (41-73); Platelet Count 164 K/mm3 (150-400); RDW Coefficient Variation 12.3 % (11.7-14.2); RDW Standard Deviation 38.5 fL (35.1-46.3); Red Blood Cell Count 5.87 M/mm3 (4.30-5.90); White Blood Cell Count 3.07 K/mm3 (4.00-11.30)
[2022-04-15] MEDS ORDERED: FARXIGA10 MG PO (01:40)
[2022-04-15 01:44] LABS: Albumin, Blood 3.6 g/dL (3.4-5.0); Albumin/Globulin Ratio 1.2 (0.8-1.8); Bilirubin, Total 0.4 mg/dL (0.1-1.0); Bun/Creatinine Ratio 14.2 (12.0-20.0); Calcium, Blood 8.6 mg/dL (8.5-10.1); Creatinine, Blood 1.41 mg/dL (0.60-1.20); Potassium, Blood 3.5 mmol/L (3.5-5.5); Total Protein, Blood 6.6 g/dL (6.4-8.2)
[2022-04-15] MEDS ORDERED: DICY20 PO (02:48)
[2022-04-15] MEDS ORDERED: PROM25 PO (02:48)
== END 2022-04-15 03:10 | disposition home or self-care (01) ==
LOC: ER 22:50
PROVIDERS: Emergency Medicine
DX: R10.9 Unspecified abdominal pain (principal); R11.2 Nausea with vomiting, unspecified; R19.7 Diarrhea, unspecified; I95.9 Hypotension, unspecified; I50.9 Heart failure, unspecified; F17.210 Nicotine dependence, cigarettes, uncomplicated; Z79.899 Other long term (current) drug therapy
CPT/HCPCS: 74177; 80053; 83690; 85025; A9270; J2550; J7030; Q9967

== ENCOUNTER 2022-07-31 10:18 | Emergency (ER) | payer OTHER ==
[~2022-07-31] VITALS: Ht 167.6 cm; Wt 85.7 kg
[~2022-07-31 10:18] MED LIST changes: +DICY20 PO; +FARXIGA10 MG PO
[2022-07-31 10:56] LABS: BASOPHILS ABSOLUTE AUTO 0.08 K/mm3 (0.00-0.23); BASOPHILS PERCENT AUTO 1 % (0-2); EOSINOPHILS ABSOLUTE AUTO 0.24 K/mm3 (0.00-0.68); EOSINOPHILS PERCENT AUTO 3 % (0-6); Hematocrit 45.6 % (37.0-53.0); Hemoglobin 15.4 g/dL (13.5-17.5); IMMATURE GRAN ABSOLUTE AUTO 0.02 K/mm3 (0.00-0.10); IMMATURE GRAN PERCENT AUTO 0 % (0-1); LYMPHOCYTES ABSOLUTE AUTO 2.09 K/mm3 (0.84-5.20); LYMPHOCYTES PERCENT AUTO 25 % (21-46); MONOCYTES ABSOLUTE AUTO 0.41 K/mm3 (0.16-1.47); MONOCYTES PERCENT AUTO 5 % (4-13); Mean Corpuscular HGB 30.1 pg (26.0-34.0); Mean Corpuscular HGB Conc 33.8 g/dL (31.5-36.5); Mean Corpuscular Volume 89 fL (80-100); Mean Platelet Volume 11.5 fL (9.1-12.4); NEUTROPHILS PERCENT AUTO 66 % (41-73); Platelet Count 259 K/mm3 (150-400); RDW Coefficient Variation 12.2 % (11.7-14.2); Red Blood Cell Count 5.12 M/mm3 (4.30-5.90); White Blood Cell Count 8.24 K/mm3 (4.00-11.30)
[2022-07-31 11:18] LABS: Albumin, Blood 3.7 g/dL (3.4-5.0); Albumin/Globulin Ratio 1.1 (0.8-1.8); Bilirubin, Total 0.6 mg/dL (0.1-1.0); Bun/Creatinine Ratio 20.4 (12.0-20.0); Calcium, Blood 8.9 mg/dL (8.5-10.1); Creatinine, Blood 0.93 mg/dL (0.60-1.20); Globulin, Blood 3.3 g/dL (2.2-4.0); Potassium, Blood 4.4 mmol/L (3.5-5.5)
[2022-07-31 17:07] LABS: U Amphetamine Screen DETECTED; U Barbituate Screen Not Detected; U Benzodiazapine Screen Not Detected; U Buprenorphine Screen Not Detected; U Cannabinoids Screen DETECTED; U Cocaine Screen Not Detected; U Methadone Screen Not Detected; U Methamphetamine Screen DETECTED; U Opiates Screen Not Detected; U Oxycodone Screen Not Detected; U Phencyclidine Screen Not Detected; U Propoxyphene Screen Not Detected
== END 2022-07-31 17:02 | disposition home or self-care (01) ==
LOC: ER 10:18
PROVIDERS: Emergency Medicine
DX: I11.0 Hypertensive heart disease with heart failure (principal); I50.9 Heart failure, unspecified; F17.210 Nicotine dependence, cigarettes, uncomplicated; Z88.0 Allergy status to penicillin; Z79.899 Other long term (current) drug therapy
CPT/HCPCS: 36415; 71045; 80053; 83880; 84484; 85025; 93005; 93010; 96374; 99285-25; J1940

== ENCOUNTER 2022-08-14 20:03 | Emergency (ER) | payer OTHER ==
[~2022-08-14] VITALS: Ht 167.6 cm; Wt 75.8 kg
[2022-08-14 20:51] LABS: BASOPHILS ABSOLUTE AUTO 0.08 K/mm3 (0.00-0.23); BASOPHILS PERCENT AUTO 1 % (0-2); EOSINOPHILS ABSOLUTE AUTO 0.22 K/mm3 (0.00-0.68); EOSINOPHILS PERCENT AUTO 2 % (0-6); Hematocrit 43.4 % (37.0-53.0); Hemoglobin 15.5 g/dL (13.5-17.5); IMMATURE GRAN ABSOLUTE AUTO 0.05 K/mm3 (0.00-0.10); IMMATURE GRAN PERCENT AUTO 0 % (0-1); LYMPHOCYTES ABSOLUTE AUTO 2.83 K/mm3 (0.84-5.20); LYMPHOCYTES PERCENT AUTO 22 % (21-46); MONOCYTES ABSOLUTE AUTO 0.47 K/mm3 (0.16-1.47); MONOCYTES PERCENT AUTO 4 % (4-13); Mean Corpuscular HGB 31.4 pg (26.0-34.0); Mean Corpuscular HGB Conc 35.7 g/dL (31.5-36.5); Mean Corpuscular Volume 88 fL (80-100); Mean Platelet Volume 12.2 fL (9.1-12.4); NEUTROPHILS ABSOLUTE AUTO 9.25 K/mm3 (1.96-9.15); NEUTROPHILS PERCENT AUTO 72 % (41-73); Platelet Count 262 K/mm3 (150-400); RDW Coefficient Variation 12.3 % (11.7-14.2); RDW Standard Deviation 39.7 fL (35.1-46.3); Red Blood Cell Count 4.94 M/mm3 (4.30-5.90)
[2022-08-14 21:11] LABS: Albumin, Blood 3.7 g/dL (3.4-5.0); Albumin/Globulin Ratio 1.3 (0.8-1.8); Bilirubin, Total 0.5 mg/dL (0.1-1.0); Bun/Creatinine Ratio 15.9 (12.0-20.0); Calcium, Blood 9.2 mg/dL (8.5-10.1); Creatinine, Blood 1.13 mg/dL (0.60-1.20); Globulin, Blood 2.9 g/dL (2.2-4.0); Potassium, Blood 3.8 mmol/L (3.5-5.5); Total Protein, Blood 6.6 g/dL (6.4-8.2)
[2022-08-14] MEDS ORDERED: FURO20 PO (23:49)
== END 2022-08-15 00:53 | disposition home or self-care (01) ==
LOC: ER 20:03
PROVIDERS: Emergency Medicine
DX: I11.0 Hypertensive heart disease with heart failure (principal); I50.21 Acute systolic (congestive) heart failure; F17.210 Nicotine dependence, cigarettes, uncomplicated; Z88.0 Allergy status to penicillin; Z79.899 Other long term (current) drug therapy
CPT/HCPCS: 71045; 80053; 83880; 84484; 85025; 93005; 93010; J1940

== ENCOUNTER 2022-09-12 11:32 | Emergency (ER) | payer OTHER ==
[~2022-09-12] VITALS: Ht 170.2 cm; Wt 79.4 kg
[~2022-09-12 11:32] MED LIST changes: +FURO20 PO
== END 2022-09-12 12:58 | disposition left against medical advice (07) ==
LOC: ER 11:32
DX: R10.9 Unspecified abdominal pain (principal); Z53.21 Procedure and treatment not carried out due to patient leaving prior to being seen by health care provider
CPT/HCPCS: 99281

== ENCOUNTER 2022-09-12 21:38 | Emergency (ER) | payer OTHER ==
[~2022-09-12] VITALS: Ht 167.6 cm; Wt 79.4 kg
[2022-09-12 22:08] LABS: BASOPHILS ABSOLUTE AUTO 0.08 K/mm3 (0.00-0.23); BASOPHILS PERCENT AUTO 1 % (0-2); EOSINOPHILS ABSOLUTE AUTO 0.13 K/mm3 (0.00-0.68); EOSINOPHILS PERCENT AUTO 1 % (0-6); Hematocrit 43.8 % (37.0-53.0); Hemoglobin 15.4 g/dL (13.5-17.5); IMMATURE GRAN ABSOLUTE AUTO 0.02 K/mm3 (0.00-0.10); IMMATURE GRAN PERCENT AUTO 0 % (0-1); LYMPHOCYTES PERCENT AUTO 30 % (21-46); MONOCYTES ABSOLUTE AUTO 0.44 K/mm3 (0.16-1.47); MONOCYTES PERCENT AUTO 4 % (4-13); Mean Corpuscular HGB 31.2 pg (26.0-34.0); Mean Corpuscular HGB Conc 35.2 g/dL (31.5-36.5); Mean Corpuscular Volume 89 fL (80-100); Mean Platelet Volume 11.7 fL (9.1-12.4); NEUTROPHILS ABSOLUTE AUTO 6.41 K/mm3 (1.96-9.15); NEUTROPHILS PERCENT AUTO 64 % (41-73); Platelet Count 267 K/mm3 (150-400); RDW Coefficient Variation 12.8 % (11.7-14.2); RDW Standard Deviation 41.7 fL (35.1-46.3); Red Blood Cell Count 4.93 M/mm3 (4.30-5.90); White Blood Cell Count 10.08 K/mm3 (4.00-11.30)
[2022-09-12 22:26] LABS: Albumin, Blood 3.2 g/dL (3.4-5.0); Albumin/Globulin Ratio 1.1 (0.8-1.8); Bilirubin, Total 0.8 mg/dL (0.1-1.0); Bun/Creatinine Ratio 14.5 (12.0-20.0); Calcium, Blood 8.4 mg/dL (8.5-10.1); Creatinine, Blood 1.24 mg/dL (0.60-1.20); Potassium, Blood 4.2 mmol/L (3.5-5.5); Total Protein, Blood 6.2 g/dL (6.4-8.2)
== END 2022-09-13 00:46 | disposition left against medical advice (07) ==
LOC: ER 21:38
PROVIDERS: Student in an Organized Health Care Education/Training Program
DX: Z53.21 Procedure and treatment not carried out due to patient leaving prior to being seen by health care provider (principal)
CPT/HCPCS: 71045; 80053; 83880; 84484; 85025; 93005; 93010

== ENCOUNTER 2022-09-21 11:37 | Inpatient (IN) | payer OTHER ==
[~2022-09-21] VITALS: Ht 170.2 cm; Wt 80.7 kg
[~2022-09-21 11:37] MED LIST changes: -CARV3.125 PO; +CARV6.25 PO; -FURO40 PO
[2022-09-21 13:11] LABS: BASOPHILS ABSOLUTE AUTO 0.08 K/mm3 (0.00-0.23); BASOPHILS PERCENT AUTO 1 % (0-2); EOSINOPHILS ABSOLUTE AUTO 0.07 K/mm3 (0.00-0.68); EOSINOPHILS PERCENT AUTO 1 % (0-6); Hematocrit 46.7 % (37.0-53.0); Hemoglobin 16.2 g/dL (13.5-17.5); IMMATURE GRAN ABSOLUTE AUTO 0.03 K/mm3 (0.00-0.10); IMMATURE GRAN PERCENT AUTO 0 % (0-1); LYMPHOCYTES ABSOLUTE AUTO 2.39 K/mm3 (0.84-5.20); LYMPHOCYTES PERCENT AUTO 23 % (21-46); MONOCYTES ABSOLUTE AUTO 0.49 K/mm3 (0.16-1.47); MONOCYTES PERCENT AUTO 5 % (4-13); Mean Corpuscular HGB 30.9 pg (26.0-34.0); Mean Corpuscular HGB Conc 34.7 g/dL (31.5-36.5); Mean Corpuscular Volume 89 fL (80-100); Mean Platelet Volume 11.7 fL (9.1-12.4); NEUTROPHILS ABSOLUTE AUTO 7.54 K/mm3 (1.96-9.15); NEUTROPHILS PERCENT AUTO 71 % (41-73); Platelet Count 278 K/mm3 (150-400); RDW Coefficient Variation 12.9 % (11.7-14.2); RDW Standard Deviation 42.4 fL (35.1-46.3); Red Blood Cell Count 5.25 M/mm3 (4.30-5.90)
[2022-09-21 13:42] LABS: Albumin, Blood 3.4 g/dL (3.4-5.0); Albumin/Globulin Ratio 1.1 (0.8-1.8); Bilirubin, Total 1.7 mg/dL (0.1-1.0); Bun/Creatinine Ratio 16.4 (12.0-20.0); Calcium, Blood 9.1 mg/dL (8.5-10.1); Creatinine, Blood 1.28 mg/dL (0.60-1.20); Globulin, Blood 3.1 g/dL (2.2-4.0); Potassium, Blood 4.3 mmol/L (3.5-5.5); Total Protein, Blood 6.5 g/dL (6.4-8.2)
[2022-09-22 05:21] LABS: Hematocrit 47.1 % (37.0-53.0); Hemoglobin 16.1 g/dL (13.5-17.5); Mean Corpuscular HGB 30.8 pg (26.0-34.0); Mean Corpuscular HGB Conc 34.2 g/dL (31.5-36.5); Mean Corpuscular Volume 90 fL (80-100); Mean Platelet Volume 12.2 fL (9.1-12.4); Platelet Count 262 K/mm3 (150-400); RDW Coefficient Variation 13.1 % (11.7-14.2); RDW Standard Deviation 42.5 fL (35.1-46.3); Red Blood Cell Count 5.22 M/mm3 (4.30-5.90); White Blood Cell Count 9.27 K/mm3 (4.00-11.30)
[2022-09-22 05:56] LABS: Creatinine, Blood 1.21 mg/dL (0.60-1.20); Potassium, Blood 3.6 mmol/L (3.5-5.5)
[2022-09-23] MEDS ORDERED: Acetaminophen650 M1 PO (03:21)
[2022-09-23] MEDS ORDERED: ENTRESTO 24 MG1 EACH PO (03:22)
[2022-09-23 06:12] LABS: Bun/Creatinine Ratio 20.8 (12.0-20.0); Creatinine, Blood 1.2 mg/dL (0.60-1.20); Magnesium, Blood 2.1 mg/dL (1.6-2.4); Potassium, Blood 3.5 mmol/L (3.5-5.5)
[2022-09-23] MEDS ORDERED: ALPR.5 PO (13:31)
[2022-09-24 07:49] LABS: Bun/Creatinine Ratio 19.4 (12.0-20.0); Calcium, Blood 9.3 mg/dL (8.5-10.1); Creatinine, Blood 1.75 mg/dL (0.60-1.20); Potassium, Blood 4.3 mmol/L (3.5-5.5)
[2022-09-24] MEDS ORDERED: BUME2 PO (13:04)
[2022-09-24] MEDS ORDERED: MIRALAX17 GM PO (13:06)
[2022-09-24] MEDS ORDERED: HYDHCL25 PO (19:52)
== END 2022-09-24 13:31 | disposition home or self-care (01) | DRG 917 ==
LOC: ER 11:37 → ERHOLD 19:41 → MEDS 22:00
PROVIDERS: Internal Medicine; Student in an Organized Health Care Education/Training Program; ADMIT Internal Medicine
DX: T43.651A Poisoning by methamphetamines accidental (unintentional), initial encounter (principal); I50.43 Acute on chronic combined systolic (congestive) and diastolic (congestive) heart failure; F15.20 Other stimulant dependence, uncomplicated; I42.7 Cardiomyopathy due to drug and external agent; N17.9 Acute kidney failure, unspecified; I13.0 Hypertensive heart and chronic kidney disease with heart failure and stage 1 through stage 4 chronic kidney disease, or unspecified chronic kidney disease; N18.9 Chronic kidney disease, unspecified; F17.210 Nicotine dependence, cigarettes, uncomplicated; F12.10 Cannabis abuse, uncomplicated; F41.9 Anxiety disorder, unspecified; R10.84 Generalized abdominal pain; K59.00 Constipation, unspecified; Z88.0 Allergy status to penicillin; Z87.442 Personal history of urinary calculi; Z79.899 Other long term (current) drug therapy; Z98.890 Other specified postprocedural states; Z79.01 Long term (current) use of anticoagulants; Z86.19 Personal history of other infectious and parasitic diseases
CPT/HCPCS: 36415; 71045; 74176; 80048; 80053; 83690; 83735; 83880; 84484; 85025; 85027; 93005; 93010; 96374; 99285-25; A9270; J1650; J1885; J1940; J2405

== ENCOUNTER 2022-09-24 14:45 | Emergency (ER) | payer OTHER ==
[~2022-09-24] VITALS: Ht 170.2 cm; Wt 80.7 kg
[~2022-09-24 14:45] MED LIST changes: +ALPR.5 PO; +BUME2 PO; +MIRALAX17 GM PO
[2022-09-24 16:09] LABS: BASOPHILS ABSOLUTE AUTO 0.09 K/mm3 (0.00-0.23); BASOPHILS PERCENT AUTO 1 % (0-2); EOSINOPHILS ABSOLUTE AUTO 0.12 K/mm3 (0.00-0.68); EOSINOPHILS PERCENT AUTO 1 % (0-6); Hematocrit 49.2 % (37.0-53.0); Hemoglobin 17.2 g/dL (13.5-17.5); IMMATURE GRAN ABSOLUTE AUTO 0.03 K/mm3 (0.00-0.10); IMMATURE GRAN PERCENT AUTO 0 % (0-1); LYMPHOCYTES ABSOLUTE AUTO 3.04 K/mm3 (0.84-5.20); LYMPHOCYTES PERCENT AUTO 30 % (21-46); MONOCYTES ABSOLUTE AUTO 0.47 K/mm3 (0.16-1.47); MONOCYTES PERCENT AUTO 5 % (4-13); Mean Corpuscular HGB 31.3 pg (26.0-34.0); Mean Corpuscular Volume 90 fL (80-100); Mean Platelet Volume 12.1 fL (9.1-12.4); NEUTROPHILS ABSOLUTE AUTO 6.42 K/mm3 (1.96-9.15); NEUTROPHILS PERCENT AUTO 63 % (41-73); Platelet Count 304 K/mm3 (150-400); RDW Coefficient Variation 13.1 % (11.7-14.2); RDW Standard Deviation 42.9 fL (35.1-46.3); White Blood Cell Count 10.17 K/mm3 (4.00-11.30)
[2022-09-24 16:25] LABS: Albumin, Blood 3.3 g/dL (3.4-5.0); Bilirubin, Total 1.1 mg/dL (0.1-1.0); Bun/Creatinine Ratio 17.5 (12.0-20.0); Calcium, Blood 9.1 mg/dL (8.5-10.1); Creatinine, Blood 2.17 mg/dL (0.60-1.20); Globulin, Blood 3.3 g/dL (2.2-4.0); Potassium, Blood 4.9 mmol/L (3.5-5.5); Total Protein, Blood 6.6 g/dL (6.4-8.2)
[2022-09-24 18:26] LABS: Influenza A, PCR NEGATIVE (NEGATIVE); Influenza B, PCR NEGATIVE (NEGATIVE); Resp Syncytial Virus, PCR NEGATIVE (NEGATIVE); SARS-Cov-2 (COVID-19) PCR, MMC NEGATIVE (NEGATIVE)
[2022-09-24] MEDS ORDERED: HYDHCL25 PO (19:52)
== END 2022-09-24 20:01 | disposition home or self-care (01) ==
LOC: ER 14:45
PROVIDERS: Emergency Medicine; Student in an Organized Health Care Education/Training Program
DX: R09.02 Hypoxemia (principal); I11.0 Hypertensive heart disease with heart failure; I50.20 Unspecified systolic (congestive) heart failure; N17.9 Acute kidney failure, unspecified; F17.210 Nicotine dependence, cigarettes, uncomplicated; Z88.0 Allergy status to penicillin; Z79.899 Other long term (current) drug therapy
CPT/HCPCS: 0241U; 71046; 80053; 83880; 84484; 85025; 93005; 93010; J2060

== ENCOUNTER 2022-09-25 12:44 | Emergency (ER) | payer OTHER ==
[~2022-09-25] VITALS: Ht 170.2 cm; Wt 80.7 kg
[~2022-09-25 12:44] MED LIST changes: +HYDHCL25 PO
== END 2022-09-25 14:21 | disposition home or self-care (01) ==
LOC: ER 12:44
DX: F41.0 Panic disorder [episodic paroxysmal anxiety] (principal); I11.0 Hypertensive heart disease with heart failure; I50.9 Heart failure, unspecified; F17.210 Nicotine dependence, cigarettes, uncomplicated
CPT/HCPCS: A9270

== ENCOUNTER 2022-11-24 09:02 | Inpatient (IN) | payer OTHER ==
[~2022-11-24] VITALS: Ht 167.6 cm; Wt 76.0 kg
[2022-11-24 10:25] LABS: BASOPHILS ABSOLUTE AUTO 0.07 K/mm3 (0.00-0.23); BASOPHILS PERCENT AUTO 1 % (0-2); EOSINOPHILS ABSOLUTE AUTO 0.07 K/mm3 (0.00-0.68); EOSINOPHILS PERCENT AUTO 1 % (0-6); Hematocrit 43.7 % (37.0-53.0); Hemoglobin 15.5 g/dL (13.5-17.5); IMMATURE GRAN ABSOLUTE AUTO 0.06 K/mm3 (0.00-0.10); IMMATURE GRAN PERCENT AUTO 1 % (0-1); LYMPHOCYTES ABSOLUTE AUTO 1.85 K/mm3 (0.84-5.20); LYMPHOCYTES PERCENT AUTO 15 % (21-46); MONOCYTES ABSOLUTE AUTO 0.67 K/mm3 (0.16-1.47); MONOCYTES PERCENT AUTO 6 % (4-13); Mean Corpuscular HGB 31.1 pg (26.0-34.0); Mean Corpuscular HGB Conc 35.5 g/dL (31.5-36.5); Mean Corpuscular Volume 88 fL (80-100); Mean Platelet Volume 12.1 fL (9.1-12.4); NEUTROPHILS ABSOLUTE AUTO 9.44 K/mm3 (1.96-9.15); NEUTROPHILS PERCENT AUTO 78 % (41-73); Platelet Count 275 K/mm3 (150-400); RDW Coefficient Variation 12.8 % (11.7-14.2); RDW Standard Deviation 41.1 fL (35.1-46.3); Red Blood Cell Count 4.99 M/mm3 (4.30-5.90); White Blood Cell Count 12.16 K/mm3 (4.00-11.30)
[2022-11-24 10:39] LABS: Albumin/Globulin Ratio 0.9 (0.8-1.8); Bilirubin, Total 1.4 mg/dL (0.1-1.0); Bun/Creatinine Ratio 12.8 (12.0-20.0); Calcium, Blood 8.9 mg/dL (8.5-10.1); Creatinine, Blood 1.17 mg/dL (0.60-1.20); Globulin, Blood 3.4 g/dL (2.2-4.0); Potassium, Blood 4.5 mmol/L (3.5-5.5); Total Protein, Blood 6.4 g/dL (6.4-8.2)
[2022-11-24 11:22] LABS: Base Excess Venous 4.3 mmol/L; Bicarbonate Venous 27.9 mmol/L (24.0-30.0); PCO2 Venous 41.5 mmHg (38-42); pH Blood Venous 7.44 (7.34-7.37)
[2022-11-24] MEDS ORDERED: ENTRESTO 24 MG1 EACH PO (15:13)
--- NOTE | 2022-11-24 20:03 | NUR ---
PATIENT WAS ADMITTED ON PREVIOUS SHIFT (DAYS). AXOX 4 AND BEDREST. SOB ON 2.5L O2 NC AND RA BASELINE. NOTES HX SEVERE CARDIOMYOPATHY EF 10-15% AND CONGESTIVE HEART FAILURE. METHAMPHETAMINE ADDICTION REPORTING LAST USED TWO DAYS AGO 11/22/2022. ON TELEMETRY ST 115. DIAPHORETIC ASKING FOR A FAN AND ONE PROVIDED. RESTING IN BED WITH LIGHT MOANING. WCTM.
--- NOTE | 2022-11-25 02:18 | NUR ---
PATIENT DIAPHORECTIC, ON TELEMETRY ST 101-108. REPORTS LAST USED METH X [address] ARMSTRONG NOTIFIED AND ORDERED IV ATIVAN 0.5 MG X ONE. WCTM
--- NOTE | 2022-11-25 04:24 | NUR ---
SHIFT SUMMARY PATIENT AXOX 4 AND BEDREST. SOB W/EXERTION.ON 2L O2 NC. ON TELEMETRY ST 115 FIRST PART OF SHIFT AND THAN ST 101-108. REPORTED LAST USED METHAMPHETAMINE X 2 DAYS AGO. DIAPHORECTIC AND MILD TACHYCARDIA. HOSPITALIST DR ARMSTRONG NOTIFIED AND ORDERED IV ATIVAN 0.5 MG X ONE. PATIENT ABLE TO CONTINUE TO REST. DENIES CHEST PAIN AND N/V. AFEBRILE. PIV REMAINS INTACT. COOPERATIVE WITH CARE. CALL LIGHT IN REACH. BED IN LOWEST POSITION. WILL CONTINUE TO MONITOR UNTIL DAY SHIFT NURSE ASSUMES CARE.
[2022-11-25 05:38] LABS: Bun/Creatinine Ratio 16.2 (12.0-20.0); Calcium, Blood 8.9 mg/dL (8.5-10.1); Creatinine, Blood 1.17 mg/dL (0.60-1.20); Potassium, Blood 3.4 mmol/L (3.5-5.5)
--- NOTE | 2022-11-25 09:28 | NUR ---
PT'S BP 89/54. REPORTED TO CHRISTINA WHO GAVE PARAMETER FOR LASIX TO HOLD IF SYSTOLIC BP IS LESS THAN 90. WILL RECHECK BP IN AN HOUR.
--- NOTE | 2022-11-25 10:13 | NUR ---
Rapid response called; pt became emotionally distraught and both HR and SOB increased. As pt calmed, his vitals returned to baseline. Dr. Morris and pt had a conversation related to code status, and pt verbalized wanting to change his code status to DNR. He recognizes his cardiac function is severely compromised and does not wish to live on life support. Ramo states he does want to talk more about the plan moving forward, but would like to wait until his mom arrives. Break Out Man at bedside, praying with pt. DNR order placed. Will check in again with pt when mom arrives, and sooner if needed. Break Out Man John agreed to attempt calling pt's "fiance", who he remains tearful about today, stating he wants to tell her how he feels, how much he loves her and wishes he had made different choices. John also plans to return to play guitar at pt's request.
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
--- NOTE | 2022-11-25 16:45 | NUR ---
SHIFT SUMMARY SOFT BP'S T/O SHIFT. DR. VASQUEZ AWARE, ARGELIA HELD. TELE ST IN 1100-120'S. PT COMPLAINED OF SHARP PAIN IN LEFT BACK, STATED IT COULD BE A RIB OUT. TUBING ASSEMBLER CALLED AT APPROX 1000 DUE TO MENTATION CHANGES, LOW BP, TACHYCARDIA. PT ANXIOUS BUT NOTED TO APPEAR MORE ALERT T/O SHIFT. PT AGREED TO DNR STATUS AFTER DISCUSSION. PALLIATIVE CARE MET WITH HIM AND FAMILY/FRIEND. PLAN IS TO FURTHER DISCUSS POSSIBLE COMFORT CARE OR HOSPICE TOMORROW. FAMILY DYNAMIC BETWEEN FIANCE AND MOTHER NOTED TO BE CAUSING ALL AROUND STRESS. FAMILY DOES NOT QUITE UNDERSTAND DNR STATUS AND EXTENT OF PATIENT'S CONDITION. PT CURRENTLY COMFORTABLE, WATCHING TV, WITH CALL LIGHT IN REACH.
--- NOTE | 2022-11-25 18:04 | NUR ---
Pt is not ready to talk about hospice. He did change code status today, but he is not ready for that conversation. He spoke tonight of possibly going to rehab facility. I didn't push him any further today on "long or short term" decision making. Plan to see pt again tomorrow.
--- NOTE | 2022-11-26 06:29 | NUR ---
Shift Summary Pt weak and experiencing dyspnea with mild exertion. On tele running sinus tach around 110 at rest. C/O feeling miserable, but states not in pain and not nauseous. BP slightly improved this shift with systolic around 105. Pt calm tonight and able to sleep through most of the night. AOX4, vss, no acute events, cooperative with care.
[2022-11-26 09:06] LABS: Bun/Creatinine Ratio 19.6 (12.0-20.0); Calcium, Blood 8.7 mg/dL (8.5-10.1); Creatinine, Blood 1.07 mg/dL (0.60-1.20); Potassium, Blood 3.5 mmol/L (3.5-5.5)
--- NOTE | 2022-11-26 13:10 | NUR ---
Patient is sleeping when I walk in the but easily awakens to the sound of my voice. He tells me that he will be going home on hospice this week and that he is having much anxiety and fear about this. We unpack some of the complications and the reasons that drive those fears. We talk about the physical, emotional, mental and spiritual concerns and possible ways to address them. I provide therapeutic listening, gentle agency legal counsel and prayer. The patient responded well and showed signs of reduced stress and falls back to sleep. I will cotninue to remain available to patietn and family.
--- NOTE | 2022-11-26 15:41 | NUR ---
Spiritual care visit conducted. Patient's mother, Selena is bedside so I step in the rm to introduce myself. She begins crying and talks about how challenging it is to see her son having to go through all this. She states that he will be coming to her house on hospice in a day or two. She shares some of her concerns about how she will cope with having him in her home but she would not have it any other way. She does admit that she and the patient were not getting along well just prior to her visit and that his RN had asked them to take a little break from each other. She states that she will go home to work on getting her house ready and thanks me for the kindness and time. I will continue to remain availble to patient and family.
--- NOTE | 2022-11-26 18:42 | NUR ---
SHIFT SUMMARY PT SLEPT OFF AND ON DURING MOST OF THE DAY. BP'S REMAINED SOFT BUT PT WAS ABLE TO RECEIVE ALL OF HIS MEDS BECAUSE SBP>90. NO ACUTE CHANGES DURING THIS SHIFT. OVERHEARD PT AND MOM ARGUING IN ROOM EARLIER THIS SHIFT, HOWEVER PLAN IS STILL FOR PT TO DISCHARGE HOME TO HIS MOM'S HOUSE WITHIN THE NEXT FEW DAYS. PATIENT CURRENTLY VISITING WITH FIANCE AND BROTHER IN ROOM. CALL LIGHT WITHIN REACH.
[2022-11-27 05:18] LABS: Bun/Creatinine Ratio 16.1 (12.0-20.0); Calcium, Blood 8.8 mg/dL (8.5-10.1); Creatinine, Blood 1.18 mg/dL (0.60-1.20); Potassium, Blood 3.7 mmol/L (3.5-5.5)
--- NOTE | 2022-11-27 06:19 | NUR ---
Shift Summary PT BP was soft early in the shift, systolic was borderline for meds at 90. Gave Entresto and checked BP 1 hour later and it was lower, help PM metropol. Pt was in good spirits tonight, laughing and joking around. Pt still weak and dyspneic with exertion. He was tired and slept through most of the night. No acute events, pleasant and cooperative with care.
--- NOTE | 2022-11-27 13:13 | NUR ---
Patient is lying in bed ad has his fiance, Michelle in the bed with him. He tells me that he is hoping to go home on hospice with her rather than his mother. He talks about his desire to with her near by than his mother. He explains the tension that exists his mother and himself. I allow them time alone. I also talk with his mother Selena outside then room she tells me that the patient should go home with her. She voices concerns about patient's ability to stay clean and sober and her concerns about a painful for him. I provide therapeutic listening for the patient and family and gentle counselor supervisor about making the most of the days they have together and the importance of providing an environment that allows for the best quality of life for as long as possible. Patient and family responded well and showed signs of reduced tension.
--- NOTE | 2022-11-28 04:53 | NUR ---
SHIFT SUMMARY; NO ACUTE CHANGES OVERNIGHT. THE PT IS AXO X4 AND A STANBY ASSIST TO THE BATHROOM DUE TO POTENTIAL FOR SYNCOPAL EPISODE R/T LOW B/P. THE PT SLEPT THE ENTIRE NIGHT. THE PT IS ON 3L NC WITH O2 SATS >92%. TELE IS IN PLACE, SR/SINUS TACH UPPER 90'S-100'S. THE PT BECOMES DYSPENIC WITH EXERTION. THE PT DENIES ANY PAIN OR CHEST PAIN/PRESSURE THIS SHIFT. CURRENTLTY THE PT IS SLEEPING IN BED WITH THE BED IN THE LOWEST POSITION AND THE CALL LIGHT AT BEDSIDE.
[2022-11-28] MEDS ORDERED: BUME2 PO (15:45)
== END 2022-11-28 16:34 | disposition home health service (06) | DRG 291 ==
LOC: ER 09:02 → MEDS 09:03
PROVIDERS: Emergency Medicine; Internal Medicine; ADMIT Internal Medicine
PROC: 4A133R1 Monitoring of Arterial Saturation, Peripheral, Percutaneous Approach (ICD-10-PCS; principal; 2022-11-25)
DX: I11.0 Hypertensive heart disease with heart failure (principal); I50.23 Acute on chronic systolic (congestive) heart failure; F15.20 Other stimulant dependence, uncomplicated; F17.210 Nicotine dependence, cigarettes, uncomplicated; I42.8 Other cardiomyopathies; Z87.442 Personal history of urinary calculi; Z88.0 Allergy status to penicillin; Z79.899 Other long term (current) drug therapy
CPT/HCPCS: 36415; 71045; 80048; 80053; 82803; 83735; 83880; 84484; 85025; 93005; 93010; 94761; 96372; 96374; 96375; 96376; 99285-25; A9270; G0378; J1650; J1940; J2060